=== PATIENT | female | born 2000 | race Caucasian/White ===

== ENCOUNTER 2024-12-15 11:50 | Emergency (ER) | payer OTHER, SELFPAY ==
--- OUTSIDE RECORDS SUMMARY | 2024-12-15 11:53 | XMS_ITS | Encounter Summary ---
Author Organization [facility] Address [address] [place] [address] Care Team Providers Care Channeler Outsole Name Role Phone No Ref-Primary, Physician Primary Care Provider Reason for Visit * Reason Onset Date Comments MH/CD Inpatient 07/11/2019 Encounter Details Date Type Department Care Team ([facility] st Contact Info) Description 07/11/2019 Telephone [facility] Behavioral Health Intake [address] [place] [id number] Generic, Behavioral Intake, MH/CD Inpatient Social History Tobacco Use Types Packs/Day Years Used Date Smoking Tobacco: Never Assessed Comments Unknown Sex and Gender Information Value Date Recorded Sex Assigned at Not on file Legal Sex Female 9:09 PM CDT Gender Identity Not on file Sexual Orientation Not on file documented as of this encounter Miscellaneous Notes * Telephone Encounter - Tory Argueta RN - 07/11/2019 10:34 PM CDT S: Received call from [facility] [employer] seeking IP MH placement for pt currently at [facility] ED B: 19 y/o female, who is a senior in high school, was BIB her mother for evaluation of MH concerns.Pt has hx of anxiety and depression. She reports increased anxiety and depression. Now endorsing SIwith plan to overdose. No HI, Erika, Psychosis, or SIB. She states she has had SI 1-2x per week for2+ years, but the change is that she now does not care about anything and has developed a plan. Trigger is break up with boyfriend. CD Hx: 1-2 drinks per week; no hx of withdrawal or tx. No Medical Hx No previous IP MH admits and no previous suicide attempts. Pt does have med management provider. Pt has not seen a therapist in over a year. UPT & Utox ordered but not collected. No other labs ordered. Pt is reported as medically cleared. A: NIGEL R: CARLENE is checking to see if mom will be involved (will put on child/adol wait list) OR if mom willnot be involved (will put on adult wait list) -will call intake back with update on this [id number]: Received call from CARLENE -mom is willing to be involved in pt's care and both mom & pt prefer placement on an adolescentunit Pt placed on child/adolescent wait list until appropriate bed is available documented in this encounter Plan of Treatment Not on file documented as of this encounter Visit Diagnoses Not on filedocumented in this encounter Care Teams Channeler Outsole Relationship Specialty Start Date End Date No Ref-Primary, Physician PCP - General 07/11/19 documented as of this encounter
--- OUTSIDE RECORDS SUMMARY | 2024-12-15 11:53 | XMS_ITS | Encounter Summary ---
Author Organization [facility] Address [address] [facility] [address] Care Team Providers Care Hand Knitter Name Role Phone No Ref-Primary, Physician Primary Care Provider Reason for Visit * Reason Onset Date Comments MH/CD Inpatient 07/12/2019 Encounter Details Date Type Department Care Team ([facility] st Contact Info) Description 07/12/2019 Telephone [facility] Behavioral Health Intake [address] [place] [phone] Generic, Behavioral Intake, MH/CD Inpatient Social History Tobacco Use Types Packs/Day Years Used Date Smoking Tobacco: Never Assessed Comments Unknown Sex and Gender Information Value Date Recorded Sex Assigned at Not on file Legal Sex Female 9:09 PM CDT Gender Identity Not on file Sexual Orientation Not on file documented as of this encounter Miscellaneous Notes * Telephone Encounter - Dalia Ladd - 07/12/2019 7:38 AM CDT R: Paged provider @ 7:37 am Rodolfo/Michael Notified unit @ 8:02 am Disposition @ 8:02 am ED will call back Notified ED nurse @ 8:30 am Pt's phone number to contact for consent [phone] documented in this encounter Plan of Treatment Not on file documented as of this encounter Visit Diagnoses Not on filedocumented in this encounter Care Teams Hand Knitter Relationship Specialty Start Date End Date No Ref-Primary, Physician PCP - General 07/11/19 documented as of this encounter
--- OUTSIDE RECORDS SUMMARY | 2024-12-15 11:53 | XMS_ITS | Clinical Summary ---
Author Organization [facility] Address [address] [place] [address] Care Team Providers Care Armed Custom Protection Officer Name Role Phone Pcp, No Primary Care Provider Unavailabl e Allergies Active Allergy Reactions Criticality Noted Date Comments Clindamycin GI Upset 10/10/2020 Severe heartburn Lactose Nausea Only Low 07/12/2019 [place] *Unknown 11/08/2018 Red oak trees Pollen Extracts *Unknown 07/12/2019 [place] trees Tree And Shrub Pollen *Unknown 11/08/2018 [place] sycamore tree Medications albuterol HFA (PRO-AIR; VENTOLIN; PROVENTIL) 90 mcg/actuation inhaler Inhale 2 Puffs by mouth every 4 hours if needed. 2 Active albuterol HFA (PRO-AIR; VENTOLIN; PROVENTIL) 90 mcg/actuation inhaler INHALE 2 PUFFS BY MOUTH EVERY 4 HOURS NEEDED FOR WHEEZING OR SHORTNESS OF BREATH 2 Active ARIPiprazole (ABILIFY) 10 mg tablet Take 10 mg by mouth once daily. 3 Active desvenlafaxine succinate (PRISTIQ) 50 mg Extended-Releas e tablet Take 50 mg by mouth once daily. 3 Active Adderall XR 10 mg Extended-Releas e capsule Take 10 mg by mouth. 2 Active Amphetamine-Dex troamphetamine (ADDERALL) 30 mg tablet Take 30 mg by mouth once daily. 3 Active hydrOXYzine HCL (ATARAX) 10 mg tablet Take by mouth at bedtime if needed. 3 Active meclizine (ANTIVERT) 25 mg tablet 2 Active metoclopramide HCl (REGLAN) 10 mg tablet 2 Active Active Problems Problem Noted Date Diagnosed Date Bipolar 1 disorder 12/29/2022 Attention deficit hyperactiv ity disorder (ADHD), predominantly inattentive type 12/29/2022 Low grade squamous intraepit helial lesion (LGSIL) on cervicovaginal cytologic smear 03/18/2022 12/29/2022 Overview (12/29/2022): Last Assessment & Plan: First pap smear February 2022 LSIL - recommend repeat pap smear in 1 year Due February 2023 Nondependent cannabis abuse, continuous 02/15/20 22 12/29/2022 Major depressive disorder 07/12/20192022 Rhinitis, allergic 06/03/2018 12/29/2022 Acne 05/12/2018 12/29/2022 Adjustment disorder with anxious mood 02/27/2017 12/29/2022 Adjustment disorder with depressed mood 02/28/20 17 12/29/2022 Constipation 02/27/2017 12/29/2022 Immunizations Immunization Administration Dates Next Due DTaP 05/11/2007, 2,04/19/2002,2000,2001,2001 HIB HbOC (HibTITER) 06/03/2004, 2,2001,2000 HIB-HepB (Comvax) 04/19/2002,2001,03/17/20 01 Hepatitis A (Peds) 05/13/2017,09/08/2014 Hepatitis B (Peds) 04/19/2002,2001, 001 Inactivated Polio Vaccine 05/11/2007,,2001,2000 MMR 05/11/2007,04/19/2002 Pneumococcal conj 7-Valent ( Prevnar 7) 2001,2001,2001 Tdap 09/08/2014 Family History Medical History Relation Name Comments Hypertension Father Psychiatric illness Father Asthma Mother Psychiatric illness Mother Alcoholism Sister Psychiatric illness Sister Relation Name Status Comments Father Alive Maternal Grandfather Maternal Grandmother Alive Mother Alive Paternal Grandfather Paternal Grandmother Sister Alive Social History Tobacco Use Types Packs/Day Years Used Date Smoking Tobacco: Never Smokeless Tobacco: Never Tobacco Cessation:Counseling Given: Not Answered Alcohol Use Standard Drinks/Week Comments Yes 2 (1 standard drink = 0.6 oz pur e alcohol) PHQ-2 Answer Date Recorded PHQ-2 TOTAL SCORE 4 12/29/2022 Social Connections Answer Date Recorded Frequency of Communication with Friends and Fami ly Not on file 01/05/2024 Financial Resource Strain Answer Date R ecorded Difficulty of Paying Living Expenses 2 12/29/2022 Difficulty of Paying Living Expenses 1 12/29/2022 Food Insecurity Answer Date Recorded Worried About Running Out of Food in the Last Ye ar 1 12/29/2022 Transportation Needs Answer Date Record ed Lack of Transportation (Medical) 1 12/29/2022 Housing Stability Answer Date Recorded Unable to Pay for Housing in the Last Year 1 12/29/2022 Comments No Sex and Gender Information Value Date Recorded Sex Assigned at Not on file Legal Sex Female 11:43 AM CDT Gender Identity Not on file Sexual Orientation Not on file Obstetrics History Last Filed Vital Signs Vital Sign Reading Time Taken Comments Blood Pressure 120/68 01/14/2023 10:21 PM CDT Pulse 101 01/14/2023 10:21 PM CDT Temperature 37 C (98.6 F) 01/14/2023 10:21 PM CDT Respiratory Rate 16 01/14/2023 10:21 PM CDT Oxygen Saturation 99% 01/14/2023 10:21 PM CDT Inhaled Oxygen Concentration - - Weight 68.9 kg (152 lb) 01/14/2023 10:21 PM CDT Height 154.9 cm (5' 1) 01/14/2023 10:21 PM CDT Body Mass Index 28.72 01/14/2023 10:21 PM CDT Plan of Treatment Health Maintenance Due Date Last Done Comments HIV for age 15-65 01/08/2016 HPV series for age 9-26 (1 - 3-dose series) 01/08/2016 Chlamydia for age 16-24 2017 Hepatitis C screening for ag e 18-79 2019 Pap test for age 21-65 2022 BMI (ht and wt on same day) for age 18+ 12/30/2023 12/29/2022 Depression screening for age 12+ 12/30/2023 12/29/2022 COVID-19 vaccine series (2023- season) 2024 10/10/2021, 05/17/2021 Influenza Vaccine (#1) 2024 Tetanus booster 09/08/2024 09/08/2014 Pneumococcal series for age 6-49 Aged Out 2001, 2001, 2001 No longer eligible based on patient's age to complete this topic Tdap Completed 09/08/2014 Insurance [facility] Care Teams Armed Custom Protection Officer Relationship Specialty Start Date End Date Pcp, No . PCP - General 12/29/22
--- OUTSIDE RECORDS SUMMARY | 2024-12-15 11:53 | XMS_ITS | Clinical Summary ---
Author Organization [facility] Address [address] [place] [address]. [place] [address] Care Team Providers Care Risk Investigator Name Role Phone No Ref-Primary, Physician Primary Care Provider Allergies Active Allergy Reactions Criticality Noted Date Comments Lactose GI Disturbance Low 07/12/2019 Seasonal Allergies 07/12/2019 [place] trees Medications sertraline (ZOLOFT) 100 MG tabletIndicatio ns:Moderate episode of recurrent major depressive disorder (H) Take 1 tablet (100 mg) by mouth daily 30 tablet 07/15/2019 Active sertraline (ZOLOFT) 50 MG tabletIndicatio ns:Moderate episode of recurrent major depressive disorder (H) Take 0.5 tablets (25 mg) by mouth daily 15 tablet 07/15/2019 Active melatonin 3 MG tabletIndicatio ns:Moderate episode of recurrent major depressive disorder (H) Take 1 tablet (3 mg) by mouth nightly as needed for sleep 30 tablet 07/15/2019 Active Vitamin D3 (CHOLECALCIFERO L) 1000 units (25 mcg) tabletIndicatio ns:Moderate episode of recurrent major depressive disorder (H) Take 1 tablet (25 mcg) by mouth daily 30 tablet 07/16/2019 Active Active Problems Problem Noted Date Diagnosed Date Major depressive disorder 07/12/2019 Social History Tobacco Use Types Packs/Day Years Used Date Smoking Tobacco: Never Assessed Comments Unknown Sex and Gender Information Value Date Recorded Sex Assigned at Not on file Legal Sex Female 9:09 PM CDT Gender Identity Not on file Sexual Orientation Not on file Last Filed Vital Signs Vital Sign Reading Time Taken Comments Blood Pressure 106/67 07/16/2019 9:00 AM CDT Pulse 79 07/16/2019 9:00 AM CDT Temperature 37.4 C (99.3 F) 07/16/2019 9:00 AM CDT Respiratory Rate 15 07/14/2019 7:00 PM CDT Oxygen Saturation 95% 07/16/2019 9:00 AM CDT Inhaled Oxygen Concentration - - Weight 50.1 kg (110 lb 6.4 oz) 07/16/2019 9:00 A M CDT Height 154.9 cm (5' 1) 07/12/2019 11:30 AM CDT Body Mass Index 20.86 07/12/2019 11:30 AM CDT Plan of Treatment Not on file [place] [id number] [address] [address] [facility] [place] Address: [address] [id number] [address] [address] [place] [address] Advance Directives For more information, please contact: [phone] * Full Code (Latest Code Status on File) Date Activated Date Inactivated Comments 07/12/2019 1:07 PM 07/16/2019 3:35 PM Question Answer Comments Code status determined by: Other (please erik t) Care Teams Risk Investigator Relationship Specialty Start Date End Date No Ref-Primary, Physician PCP - General 07/11/19
[2024-12-15 12:19] VITALS: BP 119/78; PULSE 112; RESP 20; TEMP 37.1; O2SAT 98; BMI 34.0
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
--- OUTSIDE RECORDS SUMMARY | 2024-12-15 12:52 | XMS_ITS | Clinical Summary ---
Author Organization [facility] Address [address] [place] [address] Care Team Providers Care Senior Supplier Quality Engineer Name Role Phone Cuca Meek APRN, C.N.P., M.S.N. Primary Car e Provider Source Comments Patient records contain information from all sites at [facility]. For routine questions regarding patient records, call [phone] during business hours, M-F 8:00 AM - 5:00 PM Central Time. Record requests for emergency care only can be directed to [phone] at any time.[facility] Allergies Active Allergy Reactions Criticality Noted Date Comments Clindamycin GI intolerance 10/10/2020 Severe heartburn Lactose Nausea Only Low 07/12/2019 Lavender (Lavandula Angustifolia) Itching,Other (see comments),Rash 10/26/2023 [place] Other (see comments) 11/08/2018 Red oak trees Tree And Shrub Pollen Other (see comments) 10/22 [place] Islander sycamore tree Medications * This document contains information received from the source organization and may not represent a complete record from that organization. etonogestreL (NEXPLANON) 68 mg subdermal implant 1 each by subdermal route continuously. 09/26/19 Active albuterol 90 mcg/actuation inhaler Inhale 2 puffs every 4 (four) hours as needed for wheezing or shortness of breath. 6.7 g 1 02/15/20 Active Additional Information Patient not taking.Reported on 08/24/2024 hydrOXYzine (ATARAX) 10 mg tablet Take 10-20 mg by mouth as needed. 07/07/20 22 Active ARIPiprazole (ABILIFY) 10 mg tablet 12/12/19 23 Active amphetamine-dextro amphetamine (ADDERALL XR) 15 mg 24 hr capsule TAKE 1 CAPSULE BY MOUTH DAILY. START AFTER 10 MG ER IS DONE 04/22/20 23 Active dextroamphetamine- amphetamine (ADDERALL) 20 mg tablet Take 20 mg by mouth daily. Active buPROPion XL (WELLBUTRIN XL) 150 mg 24 hr tablet Take 150 mg by mouth daily. 10/22/19 24 Active vilazodone (VIIBRYD) 20 mg tablet Take 1 tablet by mouth daily with breakfast. 10/14/19 24 Active ondansetron ODT (Zofran-ODT) 4 mg disintegrating tablet DISSOLVE ONE TABLET IN MOUTH EVERY EIGHT HOURS NEEDED NAUSEA AND VOMITING* 06/05/20 24 Active pantoprazole (Protonix) 40 mg EC tablet Take 1 tablet by mouth daily. 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 03/18/2022 Overview (08/24/2024): 03/13/22 First pap, LSIL 02/26/23 NILM 08/24/24 Pap Assessment & Plan (03/18/2022 4:19 PM CDT): First pap smear February 2022 LSIL - recommend repeat pap smear in 1 year Due February 2023 Rhinitis Allergic 06/03/2018 Acne 05/12/2018 Adjustment Disorder With Depressed Mood 02/28/20 17 Adjustment Disorder With Anxious Mood 02/27/2017 Constipation 02/27/2017 Resolved Problems Problem Noted Date Diagnosed Date Resolved Date Cannabis Mild Use Disorder ( Abuse) Uncomplicated 02/14/2022 10/26/2023 Pain Left Lower Quadrant 02/27/201703/2018 Immunizations Immunization Administration Dates Next Due DTaP (Infanrix, [employer]edia) 05/11/2007,,04/19/2002,2001,2000,2001 HepA Pediatric/Adolescent 05/13/2017,09/08/2014 HepB Pediatric/Adolescent 04/19/2002,2001, 2001 Hib (HbOC) (discontinued) 06/03/2004,04/19/2002, 2001,2001 Hib-HepB 04/19/2002,2001,2001 IPV 05/11/2007,04/19/2002,2001 ,2001 MMR 05/11/2007,04/19/2002 PCV7 (discontinued) 2001,2001,2000 Tdap 09/08/2014 Family History Medical History Relation Name Comments Alcohol abuse Father Tony Aly Anxiety disorder Father Tony Aly Depression Father Tony Aly Diabetes Father Tony Aly Hyperlipidemia Father Tony Aly Hypertension Father Tony Aly Migraines Father Tony Aly Sleep apnea Father Tony Aly Alcohol abuse Maternal Grandfather Moshe ADD Mother Era Aly Asthma Mother Era Aly Rheum arthritis Mother Era Aly Breast cancer Mother's Sister Elizabeth Anxiety disorder Paternal Grandfather Speulveda Aly Migraines Paternal Grandfather Sepulveda Aly Sleep apnea Paternal Grandfather Sepulveda Aly Lung cancer Paternal Grandmother Shanthi ADD Sister Ainsley Aly Depression Sister Ainsley Aly Relation Name Status Comments Father Tony Aly Maternal Grandfather Moshe Mother Era Aly Mother's Sister Elizabeth Paternal Grandfather Sepulveda Aly Paternal Grandmother Shanthi Sister Ainsley Aly Social History Tobacco Use Types Packs/Day Years Used Date Smoking Tobacco: Never Passive Smoke Exposure: Never Smokeless Tobacco: Never Tobacco Cessation:Counseling Given: Not Answered Alcohol Use Standard Drinks/Week Comments Yes 1 (1 standard drink = 0.6 oz pure alcohol) Occasional drink here and there. Rarer as i age [facility] Utilities Answer Date Recorded In the past 12 months has th e electric, gas, oil, or water company threatened to shut off services in your home? No 10/22/2023 Humiliation, Afraid, Rape, and Kick questionnair e Answer Date Recorded Within the last year, have y ou been afraid of your partner or ex-partner? No 10/20/2022 Within the last year, have y ou been humiliated or emotionally abused in other ways by your partner or ex-partner? No Within the last year, have y ou been kicked, hit, slapped, or otherwise physically hurt by your partner or ex-partner? No 10/20/2022 Within the last year, have y ou been raped or forced to have any kind of sexual activity by your partner or ex-partner? No 10/20/2022 Social Connection and Isolat ion Panel [NHANES] Answer Date Recorded In a typical week, how many times do you talk on the phone with family, friends, or neighbors? More than three times a week 10/20/2022 How often do you get togethe r with friends or relatives? Twice a week 10/20/2022 How often do you attend chur or worship services? More than 4 times per year 10/20/2022 Do you belong to any clubs o r organizations such as jew groups, unions, fraternal or athletic groups, or school groups? No 10/20/2022 How often do you attend meet ings of the clubs or organizations you belong to? Never 10/20/2022 Are you , , di vorced, , never , or living with a partner? Never 10/20/2022 AUDIT-C Answer Date Recorded Q1: How often do you have a drink containing alc ohol? 2-4 times a month 10/20/2022 Q2: How many drinks containi ng alcohol do you have on a typical day when you are drinking? 5 or 6 10/20/2022 Q3: How often do you have si x or more drinks on one occasion? Less than monthly 10/20/2022 Overall Financial Resource Strain (CARDIA) Answe r Date Recorded How hard is it for you to pa y for the very basics like food, housing, medical care, and heating? Very hard 10/20/2022 PHQ-2 Answer Date Recorded PHQ-2 Score 6 10/26/2023 [facility] - Occupational Stress Questionnaire Answer Date Recorded Do you feel stress - tense, restless, nervous, or anxious, or unable to sleep at night because your mind is troubled all the time - these days? To some extent 10/20/2022 Exercise Vital Sign Answer Date Recorde d On average, how many days pe r week do you engage in moderate to strenuous exercise (like a brisk walk)? 3 days 10/22/2023 On average, how many minutes do you engage in exercise at this level? 60 min 10/22/2023 Hunger Vital Sign Answer Date Recorded Within the past 12 months, y ou worried that your food would run out before you got the money to buy more. Often true Within the past 12 months, t he food you bought just didn't last and you didn't have money to get more. Sometimes true 09/2023 PRAPARE - Transportation Answer Date Re corded In the past 12 months, has l ack of transportation kept you from medical appointments or from getting medications? No 09/2023 In the past 12 months, has l ack of transportation kept you from meetings, work, or from getting things needed for daily living? No 10/22/2023 Depression Answer Date Recor ded PHQ-9 Total Score (max 27) 18 10/26 Nutrition Answer Date Recorded On average, how many serving s of fruits and vegetables do you eat per day (serving size is equal to 1 cup or approximately the size of a tennis ball)? 0-2 10/22/2023 Dental Answer Date Recorded Dental: Regular Dentist Yes 02/14/20 Employment Answer Date Recorded Employment status Employed and actively working without restrictions 10/22/2023 Housing Stability Answer Date Recorded What is your living situation today? [facility] place to live 10/22/2023 Education Answer Date Recorded What is the highest level of school you have completed or the highest degree you have received? GED or equivalent Comments No Sex and Gender Information Value Date Recorded Sex Assigned at Female 02/13/2022 8:46 PM CDT Legal Sex Female 4:54 PM MACHINE BOBBIN WINDER Gender Identity Not on file Sexual Orientation Straight 02/13/2022 8: 46 PM CDT Last Filed Vital Signs Vital Sign Reading Time Taken Comments Blood Pressure 103/73 08/24/2024 9:02 AM MACHINE BOBBIN WINDER Pulse 101 08/24/2024 9:02 AM MACHINE BOBBIN WINDER Temperature 36.4 C (97.6 F) 02/18/2024 1:12 PM CDT Respiratory Rate 18 11/23/2023 6:25 AM MACHINE BOBBIN WINDER Oxygen Saturation 99% 02/18/2024 1:12 PM CDT Inhaled Oxygen Concentration - - Weight 86.3 kg (190 lb 3.2 oz) 08/24/2024 9:02 A M MACHINE BOBBIN WINDER Height 162 cm (5' 3.78) 08/24/2024 9:02 AM MACHINE BOBBIN WINDER Body Mass Index 32.87 08/24/2024 9:02 AM MACHINE BOBBIN WINDER Plan of Treatment Health Maintenance Due Date Last Done Comments HPV Vaccines (1 - 3-dose series) 01/08/2016 Glucose Test for Med Monitoring 04/21/2024 04/21/2023, 02/14/2022, 02/14/2022, Additional history exists COVID-19 Vaccine ( - season) 2024 10/10/2021, 05/17/2021 Influenza Vaccine (#1) 2024 DTaP,Tdap,and Td Vaccines (6 - Td or Tdap) 09/08/2024 09/08/2014, 05/11/2007, 06/06/2002, Additional history exists Depression Screening (Annual PHQ-2) 09/21/2024 Cervical/Vaginal Cancer Screening 08/24/2025 08/24/2024, 02/26/2023, 03/13/2022 Pneumococcal vaccine (0-49 years) Aged Out 2001, 2001, 2001 No longer eligible based on patient's age to complete this topic Hepatitis B Vaccines Completed 04/19/2002, 04/19/2002, 2001, Additional history exists IPV Vaccines Completed 05/11/2007, 03/23, 2001, Additional history exists Hepatitis A Vaccines Completed 05/13/2017, 09/08/20 14 Chlamydia and Gonorrhea Screening Discontinued 08/24/2024, 04/28/2023, 02/26/2023, Additional history exists Medical Devices Implanted Type Area Medical Tech Device Identifier Shelf Expiration Date Model / Serial / Lot Nexplanon-08/24/2024 Implanted:Qty : 1 on 08/24/2024 by Elizabeth Yang, NOA, C.N.P., M.S.N. Subdermal Contraceptive Implant Left: Arm 08/24/2027 / / [id number] Explanted Type Area Medical Tech Device Identifier Shelf Expiration Date Model / Serial / Lot Caitlyn-09/26 Implanted:02/2022 by Mohan Camacho M.D. (Quantity not on file) Explanted:Qty : 1 on 08/24/2024 by Elizabeth Yang, NOA, C.N.P., M.S.N. Gynecologic Other Left: Arm / / [id number] Procedures Procedure Name Priority Date/Time Associated Diagnosis Comments CHLAMYDIA/GONORRHOEAE AMPLIFIED RNA Routine 08/24/2024 9:23 AM MACHINE BOBBIN WINDER Preventive Gynecological Exam Pap Smear Examination Counseling Control Subdermal Implantable Contraceptive Removal THINPREP SCREEN HPV REFLEX Routine 08/24/2024 9:23 AM MACHINE BOBBIN WINDER Preventive Gynecological Exam Pap Smear Examination COMPREHENSIVE METABOLIC PANEL, S/P STAT 04/21/2023 2:08 PM CDT from Last 3 Months or Most Recently Relevant to Health Maintenance Results * ThinPrep Screen HPV Reflex (08/24/2024 9:23 AM MACHINE BOBBIN WINDER) 08/31/2024 12:00 PM MACHINE BOBBIN WINDER [facility] Report electronically signed by Uma Live MD I verify that I have examined all relevant slides/materials for the specimen(s) and rendered or confirmed the diagnosis. 08/31/2024 12:00 PM MACHINE BOBBIN WINDER [facility] Gross Description Received specimen in a ThinPrep vial. 08/31/2024 12:00 PM MACHINE BOBBIN WINDER [facility] Pap Test Source Cervical/Endocervi sunita 08/31/2024 12:00 PM MACHINE BOBBIN WINDER [facility] Hormone Therapy/Contracep tives None/Not known 08/31/2024 12:00 PM MACHINE BOBBIN WINDER [facility] Interpretation Cervical/Endocervi sunita (ThinPrep): Satisfactory for Evaluation Endocervical/trans formation zone components absent Negative for Intraepithelial Lesion or Malignancy Reactive cellular changes associated with: Reparative or inflammatory changes 08/31/2024 12:00 PM MACHINE BOBBIN WINDER HKCY Thin Prep Vial (Cervix/Endocerv ix) 08/24/2024 9:23 AM MACHINE BOBBIN WINDER 08/24/2024 2:12 PM MACHINE BOBBIN WINDER Elizabeth Yang APRN, C.N.P., M.S.N. LAB PAP PATH DX ORDERABLES Final Result Performing Organization Address City/[facility] Co de Phone Number [facility] [address] [place] [address], [place] [facility] [address] [address] * Chlamydia / Gonorrhoeae Amplified RNA (08/24/2024 9:23 AM MACHINE BOBBIN WINDER) Source Thin Prep Vial, Cervix/Endoc ervix 08/24/2024 6:24 PM MACHINE BOBBIN WINDER [facility] Chlamydia trachomatis amplified RNA Negative Negative 08/24/2024 6:24 PM MACHINE BOBBIN WINDER [facility]TO Source Thin Prep Vial, Cervix/Endoc ervix 08/24/2024 6:24 PM MACHINE BOBBIN WINDER [facility] Neisseria gonorrhoeae amplified RNA Negative Negative 08/24/2024 6:24 PM MACHINE BOBBIN WINDER [facility] Thin Prep Vial (Cervix/Endocerv ix) 08/24/2024 9:23 AM MACHINE BOBBIN WINDER 08/24/2024 2:37 PM MACHINE BOBBIN WINDER Elizabeth Yang APRN, C.N.P., M.S.N. LAB MICROBIOLOGY - GENERAL ORDERABLES Final Result Performing Organization Address City/[facility] Co de Phone Number [facility] [address] [place] [address], [place] [facility] [address] [facility] [address] [place] [address] * (ABNORMAL) Comprehensive Metabolic Panel (04/21/2023 2:08 PM CDT) Potassium, P 4.2 3.6 - 5.2 mmol/L 04/21/2023 2:35 PM CDT NPRG Sodium, P 137 135 - 145 mmol/L 04/21/2023 2:35 PM CDT NPRG Chloride, P 102 98 - 107 mmol/L 04/21/2023 2:35 PM CDT NPRG Bicarbonate, P 26 22 - 29 mmol/L 04/21/2023 2:35 PM CDT NPRG Anion Gap, P 9 7 - 15 04/21/2023 2:35 PM CDT NPRG BUN (Blood Urea Nitrogen), P 10 6 - 21 mg/dL 04/21/2023 2:35 PM CDT NPRG Creatinine 0.61 0.59 - 1.04 mg/dL 04/21/2023 2:35 PM CDT NPRG Estimated GFR (eGFR) >90 >=60 mL/min/BS A 04/21/2023 2:35 PM CDT NPRG Comment: Estimated GFR calculated using the 2020 CKD_EPI creatinine equation. Calcium, Total, P 9.3 8.6 - 10.0 mg/dL 04/21/2023 2:35 PM CDT NPRG Glucose, P 85 70 - 140 mg/dL 04/21/2023 2:35 PM CDT NPRG Protein, Total, P 7.4 6.3 - 7.9 g/dL 04/21/2023 2:35 PM CDT NPRG Albumin, P 4.3 3.5 - 5.0 g/dL 04/21/2023 2:35 PM CDT NPRG Aspartate Aminotransferase (AST), P 19 8 - 43 U/L 04/21/2023 2:35 PM CDT NPRG Alkaline Phosphatase, P 123(H) 35 - 104 U/L 04/21/2023 2:35 PM CDT NPRG Alanine Aminotransferase (ALT), P 19 7 - 45 U/L 04/21/2023 2:35 PM CDT NPRG Bilirubin, Total, P 0.3 <=1.2 mg/dL 04/21/2023 2:35 PM CDT NPRG Blood (Blood, Venous) 04/21/2023 2:08 PM CDT 04/21/2023 2:16 PM CDT us Jessy Oneill D.O. LAB BLOOD ADD-ON Final Result [facility] [address] [facility] [address], [facility] NPRG [facility] [address] [place] [address] from Last 3 Months or Most Recently Relevant to Health Maintenance Insurance [facility] Care Teams Senior Supplier Quality Engineer Relationship Specialty Start Date End Date Cuca Meek APRN, C.N.P., M.S.N. [address] [place] [id number] PCP - General Family Medicine 07/24/22
--- OUTSIDE RECORDS SUMMARY | 2024-12-15 12:52 | XMS_ITS | Clinical Summary ---
Author Organization [facility] Address [address] [place] [address]. [place] [address] Care Team Providers Care Receiver Bulk System Name Role Phone No Ref-Primary, Physician Primary Care Provider Allergies Active Allergy Reactions Criticality Noted Date Comments Lactose GI Disturbance Low 07/12/2019 Seasonal Allergies 07/12/2019 [place] and [place] trees Medications sertraline (ZOLOFT) 100 [...] Plan of Treatment Not on file Insurance [id number] [place] [address] [address] [facility] [place] Address: [address] [address] [address] [place] [id number] [employer] Advance Directives For more information, please contact: [phone] * Full Code (Latest Code Status on File) Date Activated Date Inactivated Comments 07/12/2019 1:07 PM 07/16/2019 3:35 PM Question Answer Comments Code status determined by: Other (please erik t) Care Teams Receiver Bulk System Relationship Specialty Start Date End Date No Ref-Primary, Physician PCP - General 07/11/19
--- OUTSIDE RECORDS SUMMARY | 2024-12-15 12:52 | XMS_ITS | Encounter Summary ---
Author Organization [facility] Address [address] [facility] [place] [address] Care Team Providers Care Medical Genetics Director Name Role Phone No Ref-Primary, Physician Primary Care Provider Reason for Visit * Reason Onset Date Comments MH/CD Inpatient 07/12/2019 Encounter Details Date Type Department Care Team ([facility] st Contact Info) Description 07/12/2019 Telephone [facility] Behavioral Health Intake [address] [place] [phone] Generic, Behavioral Intake, MH/CD Inpatient Social [...] Pt's phone number to contact for consent [phone] documented in this encounter Plan of Treatment Not on file documented as of this encounter Visit Diagnoses Not on filedocumented in this encounter Care Teams Medical Genetics Director Relationship Specialty Start Date End Date No Ref-Primary, Physician PCP - General 07/11/19 documented as of this encounter
--- OUTSIDE RECORDS SUMMARY | 2024-12-15 12:52 | XMS_ITS | Clinical Summary ---
Author Organization [facility] Address [address] [place] [address] Care Team Providers Care Telemarketing Supervisor Name Role Phone Pcp, No Primary Care Provider Unavailabl e Allergies Active Allergy Reactions Criticality Noted Date Comments Clindamycin GI Upset 10/10/2020 Severe heartburn Lactose Nausea Only Low 07/12/2019 [place] *Unknown 11/08/2018 Red oak trees Pollen Extracts *Unknown 07/12/2019 [place] and [place] trees Tree And Shrub Pollen *Unknown 11/08/2018 [place] sycamore tree Medications albuterol HFA (PRO-AIR; VENTOLIN; [...] complete this topic Tdap Completed 09/08/[address] [facility] Care Teams Telemarketing Supervisor Relationship Specialty Start Date End Date Pcp, No . PCP - General 12/29/22
--- OUTSIDE RECORDS SUMMARY | 2024-12-15 12:52 | XMS_ITS | Encounter Summary ---
Author Organization [facility] Address [address] [facility] [place] [address] Care Team Providers Care Leasing Machine Tender Name Role Phone No Ref-Primary, Physician Primary Care Provider Reason for Visit * Reason Onset Date Comments MH/CD Inpatient 07/11/2019 Encounter Details Date Type Department Care Team ([facility] st Contact Info) Description 07/11/2019 Telephone [facility] Behavioral Health Intake [address] [place] [phone] Generic, Behavioral Intake, MH/CD Inpatient Social [...] PM CDT S: Received call from DEC General Manager In Training seeking IP MH placement for pt currently at [facility] ED B: 19 y/o female, who [...] call intake back with update on this 4356: Received call from CARLENE -mom is willing to be involved in pt's care and both mom & pt prefer placement on an adolescentunit Pt placed on child/adolescent wait list until appropriate bed is available documented in this encounter Plan of Treatment Not on file documented as of this encounter Visit Diagnoses Not on filedocumented in this encounter Care Teams Leasing Machine Tender Relationship Specialty Start Date End Date No Ref-Primary, Physician PCP - General 07/11/19 documented as of this encounter
[2024-12-15 13:12] LABS: Basophils Absolute Auto 0.03 K/uL (0.00-0.30); Basophils Percent Auto 0.3 % (0.0-3.0); Eosinophils Absolute Auto 0.15 K/uL (0.00-0.50); Eosinophils Percent Auto 1.7 % (0.0-7.0); Hematocrit 44.7 % (33.0-51.0); Hemoglobin* 14.9 gm/dL (12.0-16.0); Immature Granulocytes Abs Auto 0.02 K/uL (0.00-0.30); Immature Granulocytes Pct Auto 0.2 %; Lymphocytes Absolute Auto 2.08 K/uL (0.90-2.90); Lymphocytes Percent Auto 23.4 % (20-44); Mean Corpuscular HGB Conc 33 gm/dL (32-36); Mean Corpuscular Hemoglobin 26 pg (26-34); Mean Corpuscular Volume 78 fL (80-100); Neutrophils Absolute Auto 6.07 K/uL (1.7-7.0); Neutrophils Percent Auto 68.4 % (42.0-72.0); Platelet Count* 293 K/uL (140-440); RDW Coefficient of Variation % 12.2 % (11.5-15.5); Red Blood Count 5.73 m/uL (4.00-5.20); White Blood Count* 8.88 K/uL (4.50-11.00)
[2024-12-15 13:13] LABS: Slide Review Reflex No
--- NOTE | 2024-12-15 13:23 | ED.NURSE ---
Pt is calm and cooperative at this time. Jose Ramon assessing pt in room.
[2024-12-15 13:25] LABS: Albumin* 4.9 g/dL (3.3-5.0); Chloride* 108 mmol/L (96-114)
[2024-12-15 13:26] LABS: Potassium* 3.6 mmol/L (3.6-5.1); Sodium* 143 mmol/L (135-149)
[2024-12-15 13:28] LABS: Alanine Aminotransferase* 21 U/L (4-35); Anion Gap 13 mEq/L (7-15); Aspartate Amino Transferase* 24 U/L (12-35); Blood Urea Nitrogen* 10 mg/dL (5-24); Carbon Dioxide* 22 mmol/L (20-32); Creatinine* 0.7 mg/dL (0.5-1.5); Est. Creatinine Clearance* 98.86; Estimated Glomerular Filt Rate 125 ml/min; Total Protein* 7.8 g/dL (6.0-8.3)
[2024-12-15 13:29] LABS: Alkaline Phosphatase* 146 U/L (40-150); Bilirubin Total* 0.5 mg/dL (0.1-1.5); Calcium* 9.6 mg/dL (8.4-10.6); Glucose* 137 mg/dL (60-115)
[2024-12-15 13:30] LABS: Acetaminophen* < 10.0 ug/mL (10.0-30.0); Ethanol* < 0.01 % (0.01-0.03); Salicylate* < 1.0 mg/dL (1.0-10)
[2024-12-15 13:47] LABS: Ur HCG Qualitative* Negative (Negative)
--- NOTE | 2024-12-15 13:52 | ED.NURSE ---
Pt is calm and cooperative at this time.
[2024-12-15 13:54] LABS: Amphetamine Screen Urine POSITIVE (Negative); Barbiturate Screen Urine Negative (Negative); Benzodiazepines Screen Urine Negative (Negative); Cannabinoid Screen Urine POSITIVE (Negative); Cocaine Screen Urine Negative (Negative); Methadone Screen Urine Negative (Negative); Methamphetamines Screen Urine Negative (Negative); Opiate Screen Urine Negative (Negative); Oxycodone Screen Urine Negative (Negative); Phencyclidine Screen Urine Negative (Negative); Tricyclic Antidepressant Urine Negative (Negative)
--- NOTE | 2024-12-15 13:55 | ED.NURSE ---
Pt allowed to have phone and wire basket maker in room with her at this time.
--- NOTE | 2024-12-15 14:12 | ED.NURSE ---
Parents in room with pt, pt is calm and cooperative at this time.
[2024-12-15 14:29] LABS: SARS PCR* Negative SARS-CoV-2 (Negative)
--- NOTE | 2024-12-15 15:43 | ED.NURSE ---
Pt is calm and cooperative at this time, parents in room with pt.
--- NOTE | 2024-12-15 17:03 | ED.NURSE ---
Pt ate lunch, is calm and cooperative at this time. Pt parents in room with pt.
[2024-12-15 19:05] VITALS: BP 137/87; PULSE 100; RESP 18; O2SAT 99
== END 2024-12-15 20:28 ==
PROVIDERS: Emergency Provider Family Medicine
DX: R45.851 Suicidal ideations (principal); F32.A Depression, unspecified
CPT/HCPCS: 36415; 80053; 80143; 80179; 80306; 81025; 82077; 84443; 85025; 87635; 99284; 99285; Q3014

== ENCOUNTER 2024-12-15 20:23 | Outpatient (CLI) | payer OTHER, SELFPAY | END 2024-12-15 20:24 | disposition home or self-care (01) | LOC: AMB 12-16 09:37 | PROVIDERS: Visit Provider Family Medicine | DX: R45.851 Suicidal ideations (principal) | CPT/HCPCS: A0425; A0428 ==